=== PATIENT | female | born 1990 | race Caucasian/White ===

== ENCOUNTER 2024-07-20 11:33 | Inpatient (IN) | payer MEDICAID ==
[~2024-07-20] VITALS: Ht 160 cm; Wt 136.4 kg
[2024-07-20 12:22] LABS: RED BLOOD CELL COUNT(AUTO) 5.22 MIL/uL (4.00-5.20); WHITE BLOOD COUNT (AUTO) 10.4 K/uL (4.5-11.0)
[2024-07-20 12:23] LABS: BASOPHILS % (AUTO) 0.2 % (0.0-2.0); EOSINOPHILS % (AUTO) 0.1 % (1.0-6.0); HEMATOCRIT 43.5 % (36-46); HEMOGLOBIN 14.1 g/dL (12.0-16.0); LYMPHOCYTES # (AUTO) 0.7 K/uL (1.0-4.8); LYMPHOCYTES % (AUTO) 6.9 % (22.0-44.0); MEAN CORPUSCULAR HGB CONC 32.4 G/dL (31.0-37.0); MEAN CORPUSCULAR VOLUME 83 fL (80-100); MONOCYTES # (AUTO) 0.4 K/uL (0.1-1.0); MONOCYTES % (AUTO) 3.5 % (2.0-9.0); NEUTROPHILS # (AUTO) 9.3 K/uL (1.8-7.7); PLATELET COUNT (AUTO) 261 K/uL (150-450)
[2024-07-20 12:28] LABS: NEUTROPHILS % (AUTO) 89.3 % (40.0-70.0)
[2024-07-20 12:32] LABS: ANION GAP 13 mmol/L (8-16); CALCIUM, TOTAL 9.2 mg/dL (8.8-10.5); CARBON DIOXIDE 23 mmol/L (22-29); CHLORIDE 102 mmol/L (98-107); CREATININE 0.67 mg/dL (0.60-1.30); GLOMERULAR FILTR. RATE CALC > 60 mL/min (>60); GLUCOSE,RANDOM 172 mg/dL (70-110); POTASSIUM 3.7 mmol/L (3.5-5.1); SODIUM SERUM 138 mmol/L (136-145); UREA NITROGEN, BLOOD 7 mg/dL (7-18)
[2024-07-20 13:59] LABS: APPEARANCE,URINE HAZY (CLEAR); COLOR,URINE DARK YELLOW (YELLOW); GLUCOSE, URINE (UA) TRACE mg/dL (NEGATIVE); LEUKOCYTE ESTERASE ,URINE SMALL (NEGATIVE); NITRATE,URINE NEGATIVE (NEGATIVE); OCCULT BLOOD,URINE SMALL (NEGATIVE); PROTEIN,URINE 30-70 mg/dL (NEGATIVE); SPECIFIC GRAVITIY, URINE 1.026 (1.003-1.030)
[2024-07-20 14:00] LABS: BILIRUBIN,URINE SMALL (NEGATIVE)
[2024-07-20 14:07] LABS: BACTERIA,URINE Moderate /HPF (None Seen); SQUAMOUS EPITHELIAL CELL,UR Many /LPF (None Seen)
[2024-07-20] MEDS: SODIUM CHLORIDE 0.9% 1,000 ML IV ONE (14:26)
[2024-07-20] MEDS: MORPHINE SULFATE 2 MG/ML SYRINGE IVP ONE ×2 (14:26→20:36)
[2024-07-20] MEDS: METOCLOPRAMIDE HCL 5 MG/ML 2 ML VIAL IVP ONE (14:56)
[2024-07-20] MEDS: HYDROmorphone HCL 2 MG/ML SYRINGE IVP ONE (16:13)
[2024-07-20 17:24] LABS: ALBUMIN 4.1 g/dL (3.4-5.0); BILIRUBIN,DIRECT 1.8 mg/dL (0.00-0.20); BILIRUBIN,TOTAL 2.5 mg/dL (0.1-1.0); TOTAL PROTEIN, SERUM 8.1 g/dL (6.4-8.2)
[2024-07-20] MEDS ORDERED: GADOTERATE MEGLUMINE 10 MMOL/20 ML VIAL IVP ONE (18:30)
[2024-07-20] MEDS: PIPERACILLIN/TAZO 3.375 GM/D5W 50 ML IV ONE (20:28)
[2024-07-20] MEDS ORDERED: BISACODYL 10 MG RECTAL RECTAL SUPPOSITORY PR PRN (21:30)
[2024-07-20] MEDS ORDERED: IPRATROPIUM BROMIDE 0.5 MG/2.5 ML NEB SOLUTION NEB PRN (21:30)
[2024-07-20] MEDS ORDERED: ALBUTEROL SULFATE 2.5 MG/0.5 ML NEB SOLUTION NEB PRN (21:30)
[2024-07-20] MEDS ORDERED: ACETAMINOPHEN 325 MG TABLET PO PRN (21:30)
[2024-07-20] MEDS: MORPHINE SULFATE 4 MG/ML SYRINGE IVP PRN (22:55)
[2024-07-20] MEDS: HydrALAZINE HCL 20 MG/ML VIAL IVP PRN (22:55)
[2024-07-20] MEDS: SODIUM CHLORIDE 0.45% 1,000 ML IV SCH (22:57)
[2024-07-20] MEDS: DEXTROSE 5%-0.45% SODIUM CHL 1,000 ML IV SCH (22:58)
[2024-07-21] VITALS (9 sets, daily range): BP systolic 129–165; BP diastolic 82–106; PULSE 108–122; RESP 18–20; TEMP 97.6–100.9; O2SAT 95–99
[2024-07-21] MEDS: HEPARIN SODIUM,PORCINE 5,000 UNITS/ML VIAL SQ SCH (00:56)
[2024-07-21] MEDS ORDERED: SODIUM CHLORIDE 0.9% 250 ML IV ONE (03:15)
[2024-07-21] MEDS: PIPERACILLIN/TAZO 3.375 GM/D5W 50 ML IV SCH (03:39)
[2024-07-21] MEDS: MORPHINE SULFATE 2 MG/ML SYRINGE IVP PRN (03:42)
[2024-07-21 07:08] LABS: BASOPHILS % (AUTO) 0.1 % (0.0-2.0); EOSINOPHILS % (AUTO) 0 % (1.0-6.0); HEMATOCRIT 39.4 % (36-46); HEMOGLOBIN 12.8 g/dL (12.0-16.0); MEAN CORPUSCULAR HEMOGLOBIN 27.3 pg (26.0-34.0); MEAN CORPUSCULAR HGB CONC 32.5 G/dL (31.0-37.0); MEAN CORPUSCULAR VOLUME 84 fL (80-100); MONOCYTES # (AUTO) 0.7 K/uL (0.1-1.0); MONOCYTES % (AUTO) 5.2 % (2.0-9.0); NEUTROPHILS # (AUTO) 12.6 K/uL (1.8-7.7); PLATELET COUNT (AUTO) 198 K/uL (150-450); RED BLOOD CELL COUNT(AUTO) 4.68 MIL/uL (4.00-5.20); WHITE BLOOD COUNT (AUTO) 14.4 K/uL (4.5-11.0)
[2024-07-21 07:15] LABS: NEUTROPHILS % (AUTO) 87.7 % (40.0-70.0)
[2024-07-21 07:16] LABS: RBC MORPHOLOGY COMMENT NORMAL RBC MORPH
[2024-07-21 07:29] LABS: ALANINE AMINOTRANSFERASE 349 U/L (12-78); ALBUMIN 3.2 g/dL (3.4-5.0); ALKALINE PHOSPHATASE 128 U/L (46-116); AMYLASE 391 U/L (25-115); ANION GAP 11 mmol/L (8-16); ASPARTATE AMINOTRANSFERASE 90 U/L (15-37); BILIRUBIN,TOTAL 1.2 mg/dL (0.1-1.0); CALCIUM, TOTAL 8.4 mg/dL (8.8-10.5); CARBON DIOXIDE 25 mmol/L (22-29); CHLORIDE 101 mmol/L (98-107); CREATININE 0.68 mg/dL (0.60-1.30); GLOMERULAR FILTR. RATE CALC > 60 mL/min (>60); GLUCOSE,RANDOM 148 mg/dL (70-110); POTASSIUM 3.1 mmol/L (3.5-5.1); SODIUM SERUM 137 mmol/L (136-145); TOTAL PROTEIN, SERUM 6.9 g/dL (6.4-8.2); UREA NITROGEN, BLOOD 7 mg/dL (7-18)
[2024-07-21 07:54] LABS: LIPASE 910 U/L (16-77)
[2024-07-21] MEDS: PANTOPRAZOLE SODIUM 40 MG/VIAL IVP SCH (08:22)
[2024-07-21] MEDS: DOCUSATE SODIUM 100 MG CAPSULE PO SCH (09:00)
[2024-07-21] MEDS ORDERED: MAGNESIUM SULFATE 2 GM/WATER 50 ML IV PRN (10:00)
[2024-07-21] MEDS ORDERED: SODIUM CHLORIDE 0.9% 1,000 ML ONE (10:00)
[2024-07-21] MEDS ORDERED: MAGNESIUM OXIDE 400 MG TABLET PO PRN (10:00)
[2024-07-21] MEDS ORDERED: MAGNESIUM SULFATE 4 GM/WATER 100 ML IV PRN (10:00)
[2024-07-21] MEDS: POTASSIUM CHL 10 MEQ/WATER 50 ML IV PRN (10:29)
[2024-07-21] MEDS: HYDROmorphone HCL 2 MG/ML SYRINGE IVP PRN (12:53)
[2024-07-21] MEDS ORDERED: BISACODYL 10 MG RECTAL RECTAL SUPPOSITORY PR PRN (15:15)
[2024-07-21] MEDS: ACETAMINOPHEN 650 MG RECTAL SUPPOSITORY PR PRN (20:00)
[2024-07-22] VITALS (7 sets, daily range): BP systolic 142–168; BP diastolic 78–107; PULSE 111–122; RESP 18–19; TEMP 98.2–99.5; O2SAT 92–97
[2024-07-22 06:53] LABS: BASOPHILS % (AUTO) 0.1 % (0.0-2.0); EOSINOPHILS % (AUTO) 0.3 % (1.0-6.0); HEMATOCRIT 35.9 % (36-46); HEMOGLOBIN 11.9 g/dL (12.0-16.0); LYMPHOCYTES # (AUTO) 1.3 K/uL (1.0-4.8); LYMPHOCYTES % (AUTO) 9.1 % (22.0-44.0); MEAN CORPUSCULAR HGB CONC 33.1 G/dL (31.0-37.0); MEAN CORPUSCULAR VOLUME 85 fL (80-100); MONOCYTES # (AUTO) 0.9 K/uL (0.1-1.0); MONOCYTES % (AUTO) 6.6 % (2.0-9.0); NEUTROPHILS # (AUTO) 11.9 K/uL (1.8-7.7); NEUTROPHILS % (AUTO) 83.9 % (40.0-70.0); PLATELET COUNT (AUTO) 163 K/uL (150-450); RED BLOOD CELL COUNT(AUTO) 4.24 MIL/uL (4.00-5.20); RED CELL DISTRIBUTION WIDTH 13.6 % (11.5-14.5); WHITE BLOOD COUNT (AUTO) 14.2 K/uL (4.5-11.0)
[2024-07-22 07:12] LABS: ALANINE AMINOTRANSFERASE 196 U/L (12-78); ALBUMIN 2.5 g/dL (3.4-5.0); ALKALINE PHOSPHATASE 101 U/L (46-116); ANION GAP 9 mmol/L (8-16); ASPARTATE AMINOTRANSFERASE 34 U/L (15-37); BILIRUBIN,TOTAL 1.2 mg/dL (0.1-1.0); CALCIUM, TOTAL 8.1 mg/dL (8.8-10.5); CARBON DIOXIDE 26 mmol/L (22-29); CHLORIDE 101 mmol/L (98-107); CREATININE 0.65 mg/dL (0.60-1.30); GLOMERULAR FILTR. RATE CALC > 60 mL/min (>60); GLUCOSE,RANDOM 113 mg/dL (70-110); POTASSIUM 3.1 mmol/L (3.5-5.1); SODIUM SERUM 136 mmol/L (136-145); TOTAL PROTEIN, SERUM 6.5 g/dL (6.4-8.2); UREA NITROGEN, BLOOD 5 mg/dL (7-18)
[2024-07-22 07:43] LABS: AMYLASE 143 U/L (25-115); LIPASE 226 U/L (16-77)
[2024-07-22] MEDS: FLUCONAZOLE 200 MG/NACL ISOOSM 100 ML IV ONE (11:24)
[2024-07-22] MEDS ORDERED: SODIUM CHLORIDE 0.9% 250 ML IV ONE (15:26)
[2024-07-23] VITALS (7 sets, daily range): BP systolic 134–163; BP diastolic 81–93; PULSE 100–115; RESP 16–20; TEMP 97.9–98.8; O2SAT 93–96
[2024-07-23] MEDS: ONDANSETRON HCL 4 MG/2 ML VIAL IVP PRN (02:25)
[2024-07-23 08:01] LABS: BASOPHILS % (AUTO) 0.2 % (0.0-2.0); EOSINOPHILS % (AUTO) 0.6 % (1.0-6.0); HEMATOCRIT 33.5 % (36-46); LYMPHOCYTES # (AUTO) 1.3 K/uL (1.0-4.8); MEAN CORPUSCULAR HEMOGLOBIN 27.7 pg (26.0-34.0); MEAN CORPUSCULAR HGB CONC 32.9 G/dL (31.0-37.0); MEAN CORPUSCULAR VOLUME 84 fL (80-100); MONOCYTES # (AUTO) 0.9 K/uL (0.1-1.0); MONOCYTES % (AUTO) 6.9 % (2.0-9.0); NEUTROPHILS # (AUTO) 10.5 K/uL (1.8-7.7); NEUTROPHILS % (AUTO) 82.3 % (40.0-70.0); PLATELET COUNT (AUTO) 160 K/uL (150-450); RED BLOOD CELL COUNT(AUTO) 3.98 MIL/uL (4.00-5.20); RED CELL DISTRIBUTION WIDTH 13.7 % (11.5-14.5); WHITE BLOOD COUNT (AUTO) 12.7 K/uL (4.5-11.0)
[2024-07-23] MEDS: FLUCONAZOLE 100 MG/NACL ISOOSM 50 ML IV SCH (08:14)
[2024-07-23 08:18] LABS: ALANINE AMINOTRANSFERASE 121 U/L (12-78); ALBUMIN 2.3 g/dL (3.4-5.0); ALKALINE PHOSPHATASE 89 U/L (46-116); ANION GAP 7 mmol/L (8-16); ASPARTATE AMINOTRANSFERASE 21 U/L (15-37); BILIRUBIN,TOTAL 0.7 mg/dL (0.1-1.0); CALCIUM, TOTAL 8.2 mg/dL (8.8-10.5); CARBON DIOXIDE 28 mmol/L (22-29); CHLORIDE 100 mmol/L (98-107); GLOMERULAR FILTR. RATE CALC > 60 mL/min (>60); GLUCOSE,RANDOM 135 mg/dL (70-110); POTASSIUM 3.1 mmol/L (3.5-5.1); SODIUM SERUM 135 mmol/L (136-145); TOTAL PROTEIN, SERUM 6.6 g/dL (6.4-8.2); UREA NITROGEN, BLOOD 5 mg/dL (7-18)
[2024-07-23] MEDS: POTASSIUM CHLORIDE 20 MEQ ER TABLET PO PRN (08:41)
[2024-07-23] MEDS: OxyCODONE HCL/ACETAMINOPHEN 5-325 MG TABLET PO PRN (13:02)
[2024-07-23] MEDS: LIDOCAINE 5% TRANSDERMAL PATCH TD SCH (15:21)
[2024-07-23] MEDS: -LIDODERM PATCH NOTE- MISC SCH (20:06)
[2024-07-24] VITALS (14 sets, daily range): BP systolic 128–164; BP diastolic 72–95; PULSE 97–113; RESP 14–24; TEMP 97.4–98.3; O2SAT 92–98
[2024-07-24 07:17] LABS: BASOPHILS % (AUTO) 0.3 % (0.0-2.0); HEMATOCRIT 31.8 % (36-46); HEMOGLOBIN 10.5 g/dL (12.0-16.0); LYMPHOCYTES # (AUTO) 1.1 K/uL (1.0-4.8); LYMPHOCYTES % (AUTO) 10.1 % (22.0-44.0); MEAN CORPUSCULAR HGB CONC 33.1 G/dL (31.0-37.0); MEAN CORPUSCULAR VOLUME 85 fL (80-100); MONOCYTES # (AUTO) 0.8 K/uL (0.1-1.0); MONOCYTES % (AUTO) 7.4 % (2.0-9.0); NEUTROPHILS # (AUTO) 9.2 K/uL (1.8-7.7); NEUTROPHILS % (AUTO) 81.2 % (40.0-70.0); PLATELET COUNT (AUTO) 168 K/uL (150-450); RED BLOOD CELL COUNT(AUTO) 3.75 MIL/uL (4.00-5.20); RED CELL DISTRIBUTION WIDTH 13.8 % (11.5-14.5); WHITE BLOOD COUNT (AUTO) 11.3 K/uL (4.5-11.0)
[2024-07-24 07:27] LABS: ALANINE AMINOTRANSFERASE 104 U/L (12-78); ALBUMIN 2.2 g/dL (3.4-5.0); ALKALINE PHOSPHATASE 86 U/L (46-116); ANION GAP 7 mmol/L (8-16); ASPARTATE AMINOTRANSFERASE 32 U/L (15-37); BILIRUBIN,TOTAL 0.8 mg/dL (0.1-1.0); CALCIUM, TOTAL 8.4 mg/dL (8.8-10.5); CARBON DIOXIDE 28 mmol/L (22-29); CHLORIDE 98 mmol/L (98-107); CREATININE 0.54 mg/dL (0.60-1.30); GLOMERULAR FILTR. RATE CALC > 60 mL/min (>60); GLUCOSE,RANDOM 141 mg/dL (70-110); POTASSIUM 3.2 mmol/L (3.5-5.1); SODIUM SERUM 133 mmol/L (136-145); TOTAL PROTEIN, SERUM 6.4 g/dL (6.4-8.2); UREA NITROGEN, BLOOD 4 mg/dL (7-18)
[2024-07-24] MEDS: ZOLPIDEM TARTRATE 5 MG TABLET PO PRN (20:27)
[2024-07-25 00:42] VITALS: BP 138/80; PULSE 108; RESP 20; TEMP 98; O2SAT 93
[2024-07-25] MEDS: MAGNESIUM HYDROXIDE SUSPENSION 30 ML UDCUP PO PRN (02:31)
[2024-07-25 04:00] VITALS: BP 126/78; PULSE 107; RESP 19; TEMP 97.8; O2SAT 93
[2024-07-25 08:38] VITALS: BP 149/85; PULSE 92; RESP 18; TEMP 98.2; O2SAT 97
[2024-07-25 11:33] VITALS: BP 138/87; PULSE 90; RESP 18; TEMP 98.2; O2SAT 98
[2024-07-25 12:26] LABS: BASOPHILS % (AUTO) 0.3 % (0.0-2.0); EOSINOPHILS % (AUTO) 1.3 % (1.0-6.0); HEMATOCRIT 33.7 % (36-46); LYMPHOCYTES # (AUTO) 1.6 K/uL (1.0-4.8); LYMPHOCYTES % (AUTO) 13.3 % (22.0-44.0); MEAN CORPUSCULAR HEMOGLOBIN 27.5 pg (26.0-34.0); MEAN CORPUSCULAR HGB CONC 32.6 G/dL (31.0-37.0); MEAN CORPUSCULAR VOLUME 84 fL (80-100); MONOCYTES # (AUTO) 0.8 K/uL (0.1-1.0); MONOCYTES % (AUTO) 7.2 % (2.0-9.0); NEUTROPHILS # (AUTO) 9.1 K/uL (1.8-7.7); NEUTROPHILS % (AUTO) 77.9 % (40.0-70.0); PLATELET COUNT (AUTO) 195 K/uL (150-450); RED CELL DISTRIBUTION WIDTH 13.6 % (11.5-14.5); WHITE BLOOD COUNT (AUTO) 11.7 K/uL (4.5-11.0)
[2024-07-25 12:57] LABS: ALANINE AMINOTRANSFERASE 95 U/L (12-78); ALBUMIN 2.3 g/dL (3.4-5.0); ALKALINE PHOSPHATASE 91 U/L (46-116); ANION GAP 7 mmol/L (8-16); ASPARTATE AMINOTRANSFERASE 33 U/L (15-37); BILIRUBIN,TOTAL 0.7 mg/dL (0.1-1.0); CALCIUM, TOTAL 8.9 mg/dL (8.8-10.5); CARBON DIOXIDE 29 mmol/L (22-29); CHLORIDE 102 mmol/L (98-107); GLOMERULAR FILTR. RATE CALC > 60 mL/min (>60); GLUCOSE,RANDOM 119 mg/dL (70-110); POTASSIUM 3.3 mmol/L (3.5-5.1); SODIUM SERUM 138 mmol/L (136-145); TOTAL PROTEIN, SERUM 7.1 g/dL (6.4-8.2); UREA NITROGEN, BLOOD 6 mg/dL (7-18)
[2024-07-25] MEDS ORDERED: SODIUM CHLORIDE 0.9% 500 ML IV ONE (14:49)
[2024-07-25 15:50] VITALS: BP 140/85; PULSE 96; RESP 19; TEMP 98; O2SAT 98
[2024-07-25] MEDS ORDERED: 0.9% SODIUM CHLORIDE 10 ML SYRINGE IVP ONE (16:48)
[2024-07-25] MEDS ORDERED: IOHEXOL 350 MG/ML 100 ML VIAL ONE (16:48)
[2024-07-25] MEDS ORDERED: SODIUM CHLORIDE 0.9% 100 ML ONE (16:48)
[2024-07-25 20:15] VITALS: BP 155/92; PULSE 96; RESP 19; TEMP 98.8; O2SAT 95
[2024-07-26] VITALS: BP 146/89; PULSE 106; RESP 21; TEMP 99.3; O2SAT 96
[2024-07-26 04:21] VITALS: BP 153/83; PULSE 91; RESP 20; TEMP 98; O2SAT 97
[2024-07-26 07:03] LABS: BASOPHILS % (AUTO) 0.3 % (0.0-2.0); EOSINOPHILS % (AUTO) 1.2 % (1.0-6.0); HEMATOCRIT 32.3 % (36-46); HEMOGLOBIN 10.6 g/dL (12.0-16.0); LYMPHOCYTES # (AUTO) 1.8 K/uL (1.0-4.8); LYMPHOCYTES % (AUTO) 13.6 % (22.0-44.0); MEAN CORPUSCULAR HEMOGLOBIN 27.5 pg (26.0-34.0); MEAN CORPUSCULAR HGB CONC 32.8 G/dL (31.0-37.0); MEAN CORPUSCULAR VOLUME 84 fL (80-100); MONOCYTES # (AUTO) 0.9 K/uL (0.1-1.0); MONOCYTES % (AUTO) 7.1 % (2.0-9.0); NEUTROPHILS # (AUTO) 10.1 K/uL (1.8-7.7); NEUTROPHILS % (AUTO) 77.8 % (40.0-70.0); PLATELET COUNT (AUTO) 203 K/uL (150-450); RED BLOOD CELL COUNT(AUTO) 3.85 MIL/uL (4.00-5.20); RED CELL DISTRIBUTION WIDTH 13.6 % (11.5-14.5)
[2024-07-26 07:52] LABS: ANION GAP 11 mmol/L (8-16); CARBON DIOXIDE 27 mmol/L (22-29); CHLORIDE 99 mmol/L (98-107); CREATININE 0.67 mg/dL (0.60-1.30); GLUCOSE,RANDOM 115 mg/dL (70-110); POTASSIUM 3.4 mmol/L (3.5-5.1); SODIUM SERUM 137 mmol/L (136-145); UREA NITROGEN, BLOOD 5 mg/dL (7-18)
[2024-07-26 07:53] LABS: ALANINE AMINOTRANSFERASE 80 U/L (12-78); ALBUMIN 2.3 g/dL (3.4-5.0); ALKALINE PHOSPHATASE 90 U/L (46-116); ASPARTATE AMINOTRANSFERASE 27 U/L (15-37); BILIRUBIN,TOTAL 0.7 mg/dL (0.1-1.0); CALCIUM, TOTAL 9.1 mg/dL (8.8-10.5); GLOMERULAR FILTR. RATE CALC > 60 mL/min (>60)
[2024-07-26 08:00] VITALS: BP 142/78; PULSE 95; RESP 20; TEMP 98.6; O2SAT 96
[2024-07-26] MEDS: BISACODYL 5 MG EC TABLET PO PRN (08:51)
[2024-07-26 12:00] VITALS: BP 144/72; PULSE 99; RESP 22; TEMP 98.6; O2SAT 96
[2024-07-26 16:30] VITALS: BP 150/80; PULSE 98; RESP 19; TEMP 99; O2SAT 95
[2024-07-26] MEDS ORDERED: SODIUM CHLORIDE 0.9% 1,000 ML ONE (20:04)
[2024-07-26 21:59] VITALS: BP 156/103; PULSE 92; RESP 20; TEMP 98.2; O2SAT 93
[2024-07-27 01:31] VITALS: BP 153/82; PULSE 85; RESP 19; TEMP 98.3; O2SAT 95
[2024-07-27 06:01] VITALS: BP 142/85; PULSE 81; RESP 21; TEMP 98.5; O2SAT 97
[2024-07-27 07:08] LABS: ALANINE AMINOTRANSFERASE 70 U/L (12-78); ALBUMIN 2.3 g/dL (3.4-5.0); ALKALINE PHOSPHATASE 81 U/L (46-116); ANION GAP 6 mmol/L (8-16); ASPARTATE AMINOTRANSFERASE 30 U/L (15-37); BILIRUBIN,TOTAL 0.5 mg/dL (0.1-1.0); CARBON DIOXIDE 29 mmol/L (22-29); CHLORIDE 100 mmol/L (98-107); CREATININE 0.72 mg/dL (0.60-1.30); GLOMERULAR FILTR. RATE CALC > 60 mL/min (>60); GLUCOSE,RANDOM 128 mg/dL (70-110); POTASSIUM 3.5 mmol/L (3.5-5.1); SODIUM SERUM 135 mmol/L (136-145); TOTAL PROTEIN, SERUM 7.1 g/dL (6.4-8.2); UREA NITROGEN, BLOOD 6 mg/dL (7-18)
[2024-07-27 07:18] LABS: BASOPHILS % (AUTO) 0.2 % (0.0-2.0); EOSINOPHILS % (AUTO) 2.1 % (1.0-6.0); HEMATOCRIT 34.2 % (36-46); HEMOGLOBIN 11.2 g/dL (12.0-16.0); LYMPHOCYTES # (AUTO) 1.7 K/uL (1.0-4.8); LYMPHOCYTES % (AUTO) 15.4 % (22.0-44.0); MEAN CORPUSCULAR HEMOGLOBIN 27.4 pg (26.0-34.0); MEAN CORPUSCULAR HGB CONC 32.8 G/dL (31.0-37.0); MEAN CORPUSCULAR VOLUME 84 fL (80-100); MONOCYTES # (AUTO) 0.8 K/uL (0.1-1.0); MONOCYTES % (AUTO) 7.1 % (2.0-9.0); NEUTROPHILS # (AUTO) 8.5 K/uL (1.8-7.7); NEUTROPHILS % (AUTO) 75.2 % (40.0-70.0); PLATELET COUNT (AUTO) 228 K/uL (150-450); RED CELL DISTRIBUTION WIDTH 13.4 % (11.5-14.5); WHITE BLOOD COUNT (AUTO) 11.3 K/uL (4.5-11.0)
[2024-07-27 08:40] VITALS: BP 150/84; PULSE 80; RESP 20; TEMP 98.5; O2SAT 96
[2024-07-27 11:00] VITALS: BP 145/80; PULSE 80; RESP 20; TEMP 98.3; O2SAT 96
[2024-07-27] MEDS ORDERED: AMOX-457 PO (15:01)
[2024-07-27] MEDS ORDERED: FLUC100T68 PO (15:01)
[2024-07-27] MEDS ORDERED: PANT-31 PO (15:01)
[2024-07-27 15:05] VITALS: BP 132/78; PULSE 84; RESP 20; TEMP 98.5; O2SAT 96
== END 2024-07-27 15:28 | disposition home or self-care (01) | DRG 720 ==
LOC: EMS 12:19 → EDH 21:21 → 5S 07-21 00:15
PROVIDERS: ADMIT Hospitalist; ATTEND Hospitalist
PROC: 05HF33Z Insertion of Infusion Device into Left Cephalic Vein, Percutaneous Approach (ICD-10-PCS; principal; 2024-07-21)
DX: A41.9 Sepsis, unspecified organism (principal); K85.10 Biliary acute pancreatitis without necrosis or infection; E44.1 Mild protein-calorie malnutrition; D64.9 Anemia, unspecified; E87.6 Hypokalemia; K80.20 Calculus of gallbladder without cholecystitis without obstruction; N39.0 Urinary tract infection, site not specified; R00.0 Tachycardia, unspecified; R09.02 Hypoxemia; Z68.43 Body mass index [BMI] 50.0-59.9, adult
CPT/HCPCS: 36245; 36569; 71045; 72132; 74176; 74181; 76705; 76937; 80048; 80053; 80076; 81001; 82150; 83690; 83735; 84132; 84703; 85025; 87040; 87086; 97162; 97165; 99285; G0238; G0378; J0360; J1171; J1450; J1644; J2270; J2405; J2470; J2543; J2765; J3480; J7030; J7040; J7050; 36415-L1; 36415-TC